=== PATIENT | female | born 1995 | race Caucasian/White ===

== ENCOUNTER 2018-06-02 14:24 | Emergency (ER) | payer OTHER, SELFPAY | END 2018-06-02 15:12 | disposition home or self-care (01) | LOC: ERS 14:24 | DX: L03.116 Cellulitis of left lower limb (principal); F17.210 Nicotine dependence, cigarettes, uncomplicated | CPT/HCPCS: 99283 ==

== ENCOUNTER 2022-04-20 08:52 | Emergency (ER) | payer SELFPAY ==
[2022-04-20] MEDS ORDERED: HYDROcodone/Acetaminophen 10/325 mg Tablet ONE (10:56)
== END 2022-04-20 11:02 | disposition home or self-care (01) ==
LOC: ERS 08:52
DX: S93.402A Sprain of unspecified ligament of left ankle, initial encounter (principal); W17.2XXA Fall into hole, initial encounter
CPT/HCPCS: 29515

== ENCOUNTER 2023-10-28 20:58 | Emergency (ER) | payer OTHER ==
[2023-10-28 21:33] LABS: #Eosinphils 0.1 thou/uL (0.0-0.7); #Monocytes 1.1 thou/uL (0.11-0.59); #Neutrophils 17.1 thou/uL (1.40-6.50); %Basophils 0.2 % (0.0-1.0); %Eosinophils 0.3 % (0.0-10.0); %Lymphocytes 7.4 % (21.0-51.0); %Monocytes 5.5 % (0.0-10.0); %Neutrophils 86.1 % (42.0-75.0); Hematocrit 40.3 % (36.0-47.0); Hemoglobin 13.7 g/dL (12.0-16.0); Mean Corpuscular Hemoglobin 29.8 pg (27.0-31.0); Mean Corpuscular Volume 87.8 fl (78.0-98.0); Mean Platelet Volume 10.7 fL (7.4-10.4); Platelet Count 255 10x3/uL (130-400); RBC Distribution Width 13.2 % (11.5-14.5); Red Blood Cell (RBC) Count 4.59 mill/uL (4.20-5.40); White Blood Cell (WBC) Count 19.9 10x3/uL (4.8-10.8)
[2023-10-28 21:54] LABS: ALT (SGPT) 10 U/L (8-55); AST (SGOT) 14 U/L (5-34); Albumin 4.2 g/dL (3.5-5.0); Alkaline Phosphatase 61 U/L (40-110); Anion Gap 13 mmol/L (10-20); BUN (Urea Nitrogen) 10 mg/dL (7.0-18.7); Bilirubin, Total 0.5 mg/dL (0.2-1.2); Calc. Creatinine Clearance 0 mL/min (70-130); Calcium 9.3 mg/dL (7.8-10.44); Carbon Dioxide 23 mmol/L (22-29); Chloride 104 mmol/L (98-107); Estimated GFR 97; Globulin 3.1 g/dL (2.4-3.5); Glucose 116 mg/dL (70-105); Potassium 3.7 mmol/L (3.5-5.1); Protein, Total 7.3 g/dL (6.0-8.3); Sodium 136 mmol/L (136-145)
== END 2023-10-28 23:20 | disposition home or self-care (01) ==
LOC: ERS 20:58
DX: S40.011A Contusion of right shoulder, initial encounter (principal); S50.12XA Contusion of left forearm, initial encounter; S10.91XA Abrasion of unspecified part of neck, initial encounter; S20.319A Abrasion of unspecified front wall of thorax, initial encounter; V89.2XXA Person injured in unspecified motor-vehicle accident, traffic, initial encounter; W22.12XA Striking against or struck by front passenger side automobile airbag, initial encounter
CPT/HCPCS: 36415; 70450; 71045; 71260; 72125; 74177; 80053; 85025; 86850; 86900; 86901

== ENCOUNTER 2024-09-09 16:33 | Emergency (ER) | payer OTHER ==
[2024-09-09 17:03] LABS: Bacteria/HPF None Seen HPF (None Seen); Bilirubin Negative (Negative); Blood, Urine Negative (Negative); CAUTI Indications for Culture Pelvic or flank pain; Clarity Clear (Clear); Glucose, Urine (Dipstick) Normal (Negative); Ketone, Urine 20 mg/dL (Negative); Leukocyte Negative Leu/uL (Negative); Nitrite Negative (Negative); Protein, Urine (Dipstick) Negative (Neg-Trace); RBC/HPF 0-3 HPF (0-3); Specific Gravity, Urine 1.018 (1.002-1.036); Urobilinogen Normal mg/dL (Less than 2); pH, Urine 7.5 (5.0-9.0)
[2024-09-09 17:06] LABS: Urine Culture Reflex No No
[2024-09-09 17:20] LABS: #Basophils Less than 0.03 10x3/uL (0.0-0.2); %Basophils 0.2 % (0.0-1.0); %Eosinophils 0.4 % (0.0-10.0); %Lymphocytes 7.4 % (21.0-51.0); %Monocytes 3.7 % (0.0-10.0); Hematocrit 34.9 % (36.0-47.0); Hemoglobin 11.8 g/dL (12.0-16.0); Mean Corpuscular HGB CONC 33.8 g/dL (32.0-36.0); Mean Corpuscular Hemoglobin 29.1 pg (27.0-31.0); Mean Corpuscular Volume 86.2 fL (78.0-98.0); Mean Platelet Volume 10.2 fL (7.4-10.4); Platelet Count 211 10x3/uL (130-400); RBC Distribution Width 13.2 % (11.5-14.5); Red Blood Cell (RBC) Count 4.05 mill/uL (4.20-5.40)
[2024-09-09 17:22] LABS: Actual Bicarbonate (HCO3v) 21.4 mEq/L (22-28); Base Excess -1.6 mEq/L (-2.0 to +3.0); Calcium, Ionized (venous) 1.06 mmol/L (1.16-1.32); Chloride (VBG) 102 mmol/L (98-106); Hematocrit-VBG 39 % (36.0-47.0); Hemoglobin (Hb) 13.2 g/dL (11.7-15.5); Potassium (VBG) 3.53 mmol/L (3.70-5.30); Sodium 136 mmol/L (133-146); pH (venous) 7.456 (7.32-7.43)
[2024-09-09 17:55] LABS: ALT (SGPT) 7 U/L (Less than 34); AST (SGOT) 22 U/L (11-34); Alkaline Phosphatase 46 U/L (40-110); Anion Gap 12 mmol/L (10-20); BUN (Urea Nitrogen) 7 mg/dL (7.0-18.7); Bilirubin, Total 0.3 mg/dL (0.3-1.2); Calc. Creatinine Clearance 0 mL/min (70-130); Calcium 8.9 mg/dL (7.8-10.44); Carbon Dioxide 22 mmol/L (22-29); Chloride 105 mmol/L (98-107); Estimated GFR 127; Globulin 3.9 g/dL (2.4-3.5); Glucose 88 mg/dL (70-105); Potassium 3.5 mmol/L (3.5-5.1); Protein, Total 6.9 g/dL (6.0-8.3); Sodium 135 mmol/L (136-145)
[2024-09-09 18:00] LABS: Troponin I Less than 0.010 ng/mL (< 0.028)
[2024-09-09] MEDS ORDERED: Ondansetron PF 4 MG/2 ML Vial ONE (18:20)
== END 2024-09-09 21:52 | disposition home or self-care (01) ==
LOC: ERS 16:33
DX: R07.9 Chest pain, unspecified (principal)
CPT/HCPCS: 36415; 71045; 80053; 81001; 82805; 83880; 84443; 84484; 85025; 85379; 93005; 96361; 96374; J2405